=== PATIENT | female | born 1960 | race African-American/Black ===

== ENCOUNTER → 2016-05-20 | Outpatient (CLI) | payer OTHER | LOC: OD 08:50 | DX: M54.5 Low back pain (principal); M48.07 Spinal stenosis, lumbosacral region | CPT/HCPCS: 72110 ==

== ENCOUNTER 2016-07-22 21:41 | Emergency (ER) | payer SELFPAY ==
[2016-07-22] MEDS ORDERED: NORMAL SALINE 1000 ML 1,000 ML IV ONE (22:11)
--- NOTE | 2016-07-22 22:14 | ER Document Report ---
ED Medical Screen (RME) - General Chief Complaint: Numbness Stated Complaint: LEG NUMBNESS/LIGHTHEADED Notes: 55-year-old female, chief complaint of feeling tingling in her hands and feet, feeling weak, also complains of chills and a cough, states that she hurts all over. Type II diabetes history, states she gets diarrhea with metformin so she typically avoids this, she has no idea what her blood glucose levels are. Denies vomiting, chest pain, focal numbness or weakness. TRAVEL OUTSIDE OF THE [place] IN LAST 30 DAYS: No - Related Data Allergies/Adverse Reactions: No Known Allergies Allergy (Verified 07/31/12 08:37) Past Medical History - Past Medical History Cardiac Medical History: Denies: Hx Coronary Artery Disease, Hx Heart Attack, Hx Hypertension Pulmonary Medical History: Denies: Hx Asthma, Hx Bronchitis, Hx COPD, Hx Pneumonia Neurological Medical History: Denies: Hx Cerebrovascular Accident, Hx Seizures Renal/ Medical History: Denies: Hx Peritoneal Dialysis Musculoskeltal Medical History: Reports Hx Arthritis - SPINE Past Surgical History: Denies: Hx Hysterectomy - Immunizations Immunizations up to date: Yes Hx Diphtheria, Pertussis, Tetanus Vaccination: Yes Physical Exam - General General appearance: Other - Appears generally unwell with occasional coughing, not toxic - Cardiovascular Rhythm: Regular. No: Tachycardia Heart sounds: Normal auscultation, S1 appreciated, S2 appreciated
[2016-07-22 23:39] LABS: ABSOLUTE EOSINOPHILS # (AUTO) 0.3 10^3/uL (0.0-0.6); ABSOLUTE LYMPHOCYTES (AUTO) 3.2 10^3/uL (0.5-4.7); ABSOLUTE MONOCYTES (AUTO) 0.3 10^3/uL (0.1-1.4); ABSOLUTE NEUT (AUTO) 2.5 10^3/uL (1.7-8.2); BASOPHILS % (AUTO) 0.7 % (0-2); EOSINOPHILS % (AUTO) 4.7 % (0-6); HEMATOCRIT 33.9 % (36.0-47.0); HEMOGLOBIN 11.1 g/dL (12.0-15.5); HGB HCT DIFFERENCE -0.6; LYMPHOCYTES % (AUTO) 50.5 % (13-45); MEAN CORPUSCULAR HEMOGLOBIN 27.6 pg (27.0-33.4); MEAN CORPUSCULAR HGB CONC 32.8 g/dL (32.0-36.0); MEAN CORPUSCULAR VOLUME 84 fl (80-97); MONOCYTES % (AUTO) 5.3 % (3-13); RED BLOOD COUNT 4.02 10^6/uL (3.72-5.28); SEGMENTED NEUTROPHILS % (AUTO) 38.8 % (42-78); WHITE BLOOD COUNT 6.3 10^3/uL (4.0-10.5)
[2016-07-22 23:57] LABS: ALANINE AMINOTRANSFERASE 25 U/L (9-52); ALBUMIN 3.9 g/dL (3.5-5.0); ALKALINE PHOSPHATASE 87 U/L (38-126); ANION GAP 13 (5-19); ASPARTATE AMINO TRANSFERASE 16 U/L (14-36); BILIRUBIN,DIRECT 0.1 mg/dL (0.0-0.4); BILIRUBIN,TOTAL 0.3 mg/dL (0.2-1.3); BLOOD UREA NITROGEN 12 mg/dL (7-20); CALCIUM 9.5 mg/dL (8.4-10.2); CARBON DIOXIDE 28 mmol/L (22-30); CHLORIDE 103 mmol/L (98-107); CREATININE RESULT 0.69 mg/dL (0.52-1.25); GLUCOSE 129 mg/dL (75-110); POTASSIUM 4.3 mmol/L (3.6-5.0); SODIUM 144.2 mmol/L (137-145); TOTAL PROTEIN 7.3 g/dL (6.3-8.2)
--- NOTE | 2016-07-23 00:24 | ER Document Report ---
ED General - General Chief Complaint: Numbness Stated Complaint: LEG NUMBNESS/LIGHTHEADED Notes: Patient is a 55-year-old female with past history of morbid obesity, hypertension, hyperlipidemia and diabetes who presents with complaints of chills and irritation to the skin underneath her pannus and breasts. States she 's been treating this area of irritation with topical creams she has purchased [id number] without improvement. Nothing worsens her symptoms. States she became concerned today of the skin rash was causing her to have chills so she came to the emergency department. Although triage note stated that patient was having leg numbness she denies this complaint to me. Denies any chest pain or shortness of breath, nausea, vomiting, fever or diaphoresis. She is not seeing her primary care doctor regarding today's concerns. TRAVEL OUTSIDE OF THE [place] IN LAST 30 DAYS: No - Related Data Allergies/Adverse Reactions: No Known Allergies Allergy (Verified 07/31/12 08:37) Past Medical History - General Information source: Patient - Social History Smoking Status: Never Smoker Frequency of alcohol use: None Drug Abuse: None Lives with: Family Family History: Reviewed & Not Pertinent Patient has suicidal ideation: No Patient has homicidal ideation: No - Past Medical History Cardiac Medical History: Denies: Hx Coronary Artery Disease, Hx Heart Attack, Hx Hypertension Pulmonary Medical History: Denies: Hx Asthma, Hx Bronchitis, Hx COPD, Hx Pneumonia Neurological Medical History: Denies: Hx Cerebrovascular Accident, Hx Seizures Renal/ Medical History: Denies: Hx Peritoneal Dialysis Musculoskeltal Medical History: Reports Hx Arthritis - SPINE Past Surgical History: Denies: Hx Hysterectomy - Immunizations Immunizations up to date: Yes Hx Diphtheria, Pertussis, Tetanus Vaccination: Yes Review of Systems - Review of Systems Notes: Constitutional: Negative for fever. HENT: Negative for sore throat. Eyes: Negative for visual changes. Cardiovascular: Negative for chest pain. Respiratory: Negative for shortness of breath. Gastrointestinal: Negative for abdominal pain, vomiting or diarrhea. Genitourinary: Negative for dysuria. Musculoskeletal: Negative for back pain. Skin: Negative for rash. Neurological: Negative for headaches, weakness or numbness. 10 point ROS negative except as marked above and in HPI. Physical Exam - Vital signs Vitals: Temp Pulse BP Pulse Ox 97.9 F 62 164/92 H 100 07/22/16 21:50 07/22/16 21:50 07/22/16 21:50 07/22/16 21:50 Interpretation: Hypertensive Notes: PHYSICAL EXAMINATION: GENERAL: Morbidly obese female. Well-appearing, well-nourished and in no acute distress. HEAD: Atraumatic, normocephalic. EYES: Pupils equal round and reactive to light, extraocular movements intact, sclera anicteric, conjunctiva are normal. ENT: nares patent, oropharynx clear without exudates. Moist mucous membranes. NECK: Normal range of motion, supple without lymphadenopathy LUNGS: Breath sounds clear to auscultation bilaterally and equal. No wheezes rales or rhonchi. HEART: Regular rate and rhythm without murmurs ABDOMEN: Morbidly obese abdomen Soft, nontender, normoactive bowel sounds. No guarding, no rebound. No masses appreciated. EXTREMITIES: Normal range of motion, no pitting or edema. No cyanosis. NEUROLOGICAL: No focal neurological deficits. Moves all extremities spontaneously and on command. PSYCH: Normal mood, normal affect. SKIN: Warm, Dry, normal turgor, there is erosion of the superficial skin underneath the pannus of the abdomen and underneath the breasts bilaterally. Course - Re-evaluation Re-evalutation: 07/23/16 00:22 Patient presents with multiple vague complaints that did not appear to be concerning for any acute life-threatening pathology. Vitals are within normal limits at triage and at time of discharge. Physical examination is unremarkable. Patient has tolerated oral intake without difficulty. Patient was not noted to be in distress at any point during their ER visit. At this time, based on the reassuring evaluation, I do not suspect an acute OK, pulmonary embolus, aortic dissection, acute intra-abdominal pathology, stroke, or sepsis. Patient does have some findings on exam under her pannus and breasts bilaterally consistent with candidiasis. Will treat with topical nystatin. Will discharge with return precautions and follow-up recommendations. Verbal discharge instructions given a the bedside and opportunity for questions given. Medication warnings reviewed. Patient is in agreement with this plan and has verbalized understanding of return precautions and the need for primary care follow-up in the next 24-72 hours. - Vital Signs Vital signs: Temp Pulse Resp BP Pulse Ox 97.4 F 60 18 131/83 H 100 07/23/16 00:45 07/23/16 00:45 07/23/16 00:45 07/23/16 00:45 07/23/16 00:45 - Laboratory Result Diagrams: 07/22/16 23:27 07/22/16 23:27 Laboratory results interpreted by me: 07/22/16 07/22/16 23:27 23:27 Hgb 11.1 L Hct 33.9 L RDW 16.0 H Seg Neutrophils % 38.8 L Lymphocytes % 50.5 H Glucose 129 H Discharge - Discharge Clinical Impression: Muscle ache, Skin candidiasis Condition: Good Disposition: HOME, SELF-CARE Additional Instructions: Please apply the cream that has been prescribed as directed. Follow-up closely with your primary care doctor.Please return to the emergency room immediately if you experience any concerning symptoms including high fevers, severe headache , chest pain, difficulty breathing, abdominal pain, slurred speech, numbness or weakness in your arms or legs, or any other symptom that concerns you. Prescriptions: Nystatin/Triamcin [Nystatin-Triamcinolone Ointm] 60 gm TP BID #60 oint...g.
[2016-07-23 00:53] VITALS: BP 131/83
== END 2016-07-23 00:45 | disposition home or self-care (01) ==
LOC: ER 21:41
DX: M79.1 Myalgia (principal); B37.2 Candidiasis of skin and nail; R20.0 Anesthesia of skin; R42 Dizziness and giddiness; E66.01 Morbid (severe) obesity due to excess calories; I10 Essential (primary) hypertension; E78.5 Hyperlipidemia, unspecified; E11.9 Type 2 diabetes mellitus without complications
CPT/HCPCS: 36415; 71020; 80053; 85025; 99284

== ENCOUNTER → 2016-11-05 | Outpatient (CLI) | payer OTHER ==
--- NOTE | 2016-11-05 10:29 | RADIOLOGY REPORT (SQ) ---
EXAM DESCRIPTION: U/S ABDOMEN COMPLETE W/DOPPLER COMPLETED DATE/TIME: 11/05/2016 8:58 am REASON FOR STUDY: NAUSEA (R11.0), RUQ PAIN (R10.11) R11.0 NAUSEA COMPARISON: None. TECHNIQUE: Dynamic and static grayscale images acquired of the abdomen and recorded on PACS. Additio nal selected color Doppler and spectral images recorded. LIMITATIONS: Patient body habitus, bowel gas. FINDINGS: PANCREAS: Head and body are normal. The tail was obscured by gas. LIVER: 17.6 cm. Diffusely echogenic. Evaluation of portions of the right lobe or limited by patient body habitus LIVER VASCULATURE: Normal directional flow of the main portal vein and hepatic veins. GALLBLADDER: No stones. Normal wall thickness. No pericholecystic fluid. ULTRASOUND-DETECTED LAWTON'S SIGN: Negative. INTRAHEPATIC DUCTS AND COMMON DUCT: Common bile duct is normal at 4 mm. There is no intrahepatic tito noemí dilatation. INFERIOR VENA CAVA: Normal flow. AORTA: No aneurysm. The distal abdominal aorta was obscured by gas. RIGHT KIDNEY: Normal size, 10.4 cm. Normal echogenicity. No solid or suspicious masses. No hyd ronephrosis. No calcifications. LEFT KIDNEY: Normal size, 10.3 cm. Normal echogenicity. No solid or suspicious masses. No hydr onephrosis. No calcifications. SPLEEN: Normal size, 10 cm. No solid masses. PERITONEAL AND PLEURAL SPACES: No ascites or effusions. OTHER: No other significant finding. IMPRESSION: Fatty infiltration of the liver. No other abnormality is seen. The study is slightly l imited as described. TECHNICAL DOCUMENTATION: JOB ID: [id number]- All Rights Reserved
== END ==
LOC: RAD 08:01
DX: R11.0 Nausea (principal); R10.11 Right upper quadrant pain; K76.0 Fatty (change of) liver, not elsewhere classified
CPT/HCPCS: 76700; 93976

== ENCOUNTER → 2016-11-05 | Outpatient (CLI) | payer OTHER ==
[2016-11-05 08:31] LABS: HEMATOCRIT 34.4 % (36.0-47.0); HEMOGLOBIN 11.3 g/dL (12.0-15.5); HGB HCT DIFFERENCE -0.5; MEAN CORPUSCULAR HEMOGLOBIN 27.5 pg (27.0-33.4); MEAN CORPUSCULAR HGB CONC 32.7 g/dL (32.0-36.0); MEAN CORPUSCULAR VOLUME 84 fl (80-97); RED CELL DISTRIBUTION WIDTH 16.8 % (11.5-14.0); WHITE BLOOD COUNT 4.4 10^3/uL (4.0-10.5)
== END ==
LOC: CCC 08:13
DX: D64.9 Anemia, unspecified (principal); E11.8 Type 2 diabetes mellitus with unspecified complications
CPT/HCPCS: 36415; 82728; 83036; 83540; 83550; 85027; 85045

== ENCOUNTER → 2016-11-30 | Outpatient (CLI) | payer OTHER ==
--- NOTE | 2016-11-30 11:29 | RADIOLOGY REPORT (SQ) ---
EXAM DESCRIPTION: SHOULDER LEFT 2 OR MORE VIEWS COMPLETED DATE/TIME: 11/30/2016 11:20 am REASON FOR STUDY: L SHOULDER PAIN COMPARISON: 03/07/2013 NUMBER OF VIEWS: Three view. TECHNIQUE: Internal rotation, external rotation, and Y view images acquired of the left shoulder. LIMITATIONS: None. FINDINGS: MINERALIZATION: Normal. BONES: No acute fracture or dislocation. No worrisome bone lesions. No significant osteophytes. GLENOHUMERAL JOINT: No significant findings. ACROMIOCLAVICULAR JOINT: Moderate degenerative change that includes osteophyte formation along the francisco perior aspect. SOFT TISSUES: No calcifications. VISUALIZED RIBS, SPINE, AND LUNG: No other significant finding. OTHER: No other significant finding. IMPRESSION: Osteoarthritic change left AC joint. Stable since the previous study. No acute finding s. TECHNICAL DOCUMENTATION: JOB ID: [id number] [employer]- All Rights Reserved
== END ==
LOC: RAD 11:03
DX: M25.512 Pain in left shoulder (principal)

== ENCOUNTER → 2017-01-12 | Outpatient (CLI) | payer OTHER ==
[2017-01-12 12:58] LABS: ANION GAP 9 (5-19); BLOOD UREA NITROGEN 9 mg/dL (7-20); CALCIUM 9.4 mg/dL (8.4-10.2); CARBON DIOXIDE 29 mmol/L (22-30); CHLORIDE 104 mmol/L (98-107); CHOLESTEROL 198.55 mg/dL (0-200); CREATININE RESULT 0.68 mg/dL (0.52-1.25); Direct HDL 73 mg/dL (>40); GLUCOSE 116 mg/dL (75-110); SODIUM 141.8 mmol/L (137-145); TRIGLYCERIDES 66 mg/dL (<150)
[2017-01-12 13:04] LABS: POTASSIUM 4.5 mmol/L (3.6-5.0)
[2017-01-12 13:09] LABS: DIRECT LDL 99 mg/dL (<100)
[2017-01-12 13:10] LABS: FREE T3 4.5 pg/mL (2.77-5.27)
[2017-01-12 13:24] LABS: THYROID STIMULATING HORMONE 1.42 uIU/mL (0.47-4.68)
== END ==
LOC: CCC 11:33
DX: E03.9 Hypothyroidism, unspecified (principal); I27.0 Primary pulmonary hypertension
CPT/HCPCS: 36415; 80048; 80061; 82306; 82607; 84439; 84443; 84481

== ENCOUNTER → 2017-06-27 | Outpatient (CLI) | payer OTHER ==
[2017-06-27 13:35] LABS: ANION GAP 10 (5-19); BLOOD UREA NITROGEN 12 mg/dL (7-20); CARBON DIOXIDE 27 mmol/L (22-30); CHLORIDE 105 mmol/L (98-107); GLUCOSE 128 mg/dL (75-110); POTASSIUM 3.9 mmol/L (3.6-5.0); SODIUM 141.7 mmol/L (137-145)
== END ==
LOC: CCC 12:28
DX: I10 Essential (primary) hypertension (principal); Z79.899 Other long term (current) drug therapy
CPT/HCPCS: 36415; 80048

== ENCOUNTER → 2018-03-17 | Outpatient (CLI) | payer OTHER ==
[2018-03-17 14:13] LABS: ALANINE AMINOTRANSFERASE 17 U/L (9-52); ALKALINE PHOSPHATASE 88 U/L (38-126); ANION GAP 10 (5-19); ASPARTATE AMINO TRANSFERASE 17 U/L (14-36); BILIRUBIN,DIRECT 0.2 mg/dL (0.0-0.4); BILIRUBIN,TOTAL 0.5 mg/dL (0.2-1.3); BLOOD UREA NITROGEN 14 mg/dL (7-20); CALCIUM 9.4 mg/dL (8.4-10.2); CARBON DIOXIDE 34 mmol/L (22-30); CHLORIDE 102 mmol/L (98-107); CHOLESTEROL 211.49 mg/dL (0-200); GLUCOSE 95 mg/dL (75-110); TOTAL PROTEIN 7.5 g/dL (6.3-8.2); TRIGLYCERIDES 59 mg/dL (<150)
[2018-03-17 14:24] LABS: DIRECT LDL 118 mg/dL (<100)
== END ==
LOC: CCC 13:22
DX: E11.8 Type 2 diabetes mellitus with unspecified complications (principal)
CPT/HCPCS: 36415; 80053; 80061

== ENCOUNTER → 2018-08-12 | Outpatient (CLI) | payer SELFPAY | LOC: HHS 09:12 | DX: Z12.31 Encounter for screening mammogram for malignant neoplasm of breast (principal) ==